=== PATIENT | female | born 1975 | race Caucasian/White ===

== ENCOUNTER 2019-08-03 09:43 | Day surgery (SDC) | payer OTHER, SELFPAY ==
[2019-08-03] VITALS (7 sets, daily range): BP systolic 103–143; BP diastolic 78–95; PULSE 72–80; RESP 16–18; TEMP 36.5–36.7; O2SAT 92–99; BMI 34.9
[2019-08-03 10:17] LABS: Internal QC Validated? YES +Cl - CLEAR BKGD; Pregnancy, Urine Negative Negative
[2019-08-03] MEDS: Lactated Ringers 1,000 ML 75 ML IV (10:31)
--- NOTE | 2019-08-03 11:20 | RAD_ITS ---
PROCEDURE: Caudal block injection DATE OF EXAMINATION: 08/03/2019 INDICATION: Female, 44 years old. Pain PHYSICIAN: Dr. Bernabe FLUOROSCOPY TIME (if supplied): (0:06) minutes/seconds RADIATION DOSAGE (If Supplied By Facility): ( 4.13 ) mGy A caudal block injection was performed under the direction of Dr. Bernabe and 2 fluoroscopic images were submitted for review. There is contrast material noted posterior to the sacrum in the spinal canal and these images were completed to Dr. Bernabe satisfaction. RAD/Fluor Guidance for Spine Inj IMPRESSION: A caudal block injection was performed under direction of Dr. Bernabe with fluoroscopic images obtained as described above. Electronically Signed: Vickey Solis, at 11:42 EDT Tel , Service support ,
[2019-08-03] MEDS: Bupivacaine 0.25% 30 ML Vial (11:31)
[2019-08-03] MEDS: MethylPREDNISolone Acetate 80 MG/ML Vial (11:31)
--- NOTE | 2019-08-03 12:40 | OP.PCM_ITS ---
Report of Operation Date of Procedure: 08/03/19 Description of Surgical Findings:: PREOPERATIVE DIAGNOSIS: Lumbosacral radiculopathy, lumbosacral degenerative disc disease, lumbosacral spinal stenosis POSTOPERATIVE DIAGNOSIS: Lumbar sacral radiculopathy, lumbosacral degenerative disc disease, lumbosacral spinal stenosis PROCEDURE PERFORMED: Caudal epidural steroid injection. ANESTHESIA: MAC. BLOOD LOSS: Minimal. COMPLICATIONS: None. DESCRIPTION OF PROCEDURE: History and physical of today was reviewed. Risks and benefits of the procedure were explained. The patient understood and agreed to proceed. Informed consent was obtained. IV inserted per routine protocol. The patient was taken to the operating room and placed in the prone position with a pillow positioned underneath the abdomen. The lower back and tailbone area was prepped and draped in a sterile fashion using iodine x3. Under f luoroscopy guidance on a lateral view, the caudal space was identified. The skin and subcutaneous tissue was anesthetized with approximately 3 mL of 1% lidocaine using a 25-gauge regular needle. Under direct visualization with fluoroscopy, using a 22-gauge 3-1/2-inch spinal needle, the needle was advanced via the skin through the sacral hiatus. The tip of the needle was passed through the sacrococcygeal ligament and advanced to approximately S4 area. After negative aspiration of blood or CSF, a total of 3 mL of contrast was injected to confirm correct placement of the needle as well as cephalad spread. The spread was followed to approximately L5 area. After confirmation on AP as well as lateral view and repeated negative aspiration, a total of 15 mL of preservative-free 0.125% Marcaine with 80 mg of Depo-Medrol was injected easily. The needle was then removed intact. The patient experienced no sign or symptoms of intrathecal or intravascular injection. The patient experienced no paresthesia. The procedure was completed without any apparent difficulty or any complications. The patient appeared to tolerate it well. ASSESSMENT AND PLAN: This is an 44-year-old female with lumbosacral radiculopathy, lumbosacral degenerative disc disease, lumbosacral spinal stenosis status post caudal epidural steroid injection patient will continue her current medications patient found approximately 2 weeks for reevaluation.
== END 2019-08-03 12:25 | disposition home or self-care (01) ==
LOC: SDC 09:51 → AC 10:20
PROVIDERS: Anesthesiology; Family Provider Family Medicine; PCP Family Medicine; Referring Provider Anesthesiology Pain Medicine; Visit Provider Anesthesiology Pain Medicine
PROC: 3E0S3BZ Introduction of Anesthetic Agent into Epidural Space, Percutaneous Approach (ICD-10-PCS; CPT 62282; principal; 2019-08-03 11:15)
DX: M51.17 Intervertebral disc disorders with radiculopathy, lumbosacral region (principal); M48.07 Spinal stenosis, lumbosacral region; M46.96 Unspecified inflammatory spondylopathy, lumbar region; M51.35 Other intervertebral disc degeneration, thoracolumbar region; M79.7 Fibromyalgia; K58.9 Irritable bowel syndrome, unspecified; G43.909 Migraine, unspecified, not intractable, without status migrainosus; G47.00 Insomnia, unspecified; F41.9 Anxiety disorder, unspecified; Z79.891 Long term (current) use of opiate analgesic; Z79.899 Other long term (current) drug therapy
CPT/HCPCS: 62323; 64483; 77003; 81025; J7120; J3490

== ENCOUNTER 2019-08-31 05:56 | Day surgery (SDC) | payer OTHER, SELFPAY ==
[2019-08-03 10:23] VITALS: BMI 34.9
[2019-08-31 06:14] VITALS: BP 128/89; PULSE 77; RESP 18; TEMP 36.3; O2SAT 100; BMI 35.8
[2019-08-31] MEDS: Lactated Ringers 1,000 ML 75 ML IV (06:32)
[2019-08-31 06:38] LABS: Internal QC Validated? YES +Cl - CLEAR BKGD; Pregnancy, Urine Negative Negative
--- NOTE | 2019-08-31 07:21 | SUR.OPER ---
radiofrequency ablatlion machine: [id number]
--- NOTE | 2019-08-31 07:30 | RAD_ITS ---
STUDY: LEFT L3-S1 RADIOFREQUENCY ABLATION. REASON FOR EXAM: Female, 44 years old. Chronic low back pain. FLUOROSCOPY TIME (if supplied): ( 41.7 seconds ) minutes/seconds TECHNIQUE: Intraoperative fluoroscopic services provided for left L3-S1 radiofrequency ablation. COMPARISON: None. FINDINGS: Intraoperative fluoroscopic services provided for left L3-S1 radiofrequency ablation. RAD/Lumbar Spine 2 or 3 Views IMPRESSION: Intraoperative fluoroscopic services provided for left L3-S1 radiofrequency ablation. Electronically Signed: Shawn Almodovar, at 14:30 EST , Service support ,
[2019-08-31] MEDS: MethylPREDNISolone Acetate 80 MG/ML Vial (07:40)
[2019-08-31] MEDS: Bupivacaine 0.25% 30 ML Vial (07:40)
[2019-08-31 08:00] VITALS: BP 121/92; BP 128/89; PULSE 84; RESP 18; TEMP 36.4; O2SAT 97
[2019-08-31 08:05] VITALS: BP 128/89; BP 130/99; PULSE 87; RESP 16; O2SAT 97
[2019-08-31 08:10] VITALS: BP 128/89; BP 132/93; PULSE 85; RESP 16; O2SAT 98
--- NOTE | 2019-08-31 08:13 | PCM.OPRPT ---
Report of Operation Date of Procedure: 08/31/19 Description of Surgical Findings:: PROCEDURE: Left-sided radiofrequency ablation of the medial branch L3, L4, L5, S1 PREOPERATIVE DIAGNOSES: Lumbosacral spondylosis, lumbosacral degenerative disc disease, lumbar facet arthropathy POSTOPERATIVE DIAGNOSES: Lumbosacral spondylosis, lumbosacral degenerative disc disease, lumbar facet arthropathy ANESTHESIA: MAC COMPLICATIONS: None BLOOD LOSS: Minimal PROCEDURE IN DETAIL: History and physical today was reviewed. Risks and benefits of procedure explained. The patient understood, agreed to the procedure and informed consent was obtained. IV inserted per routine protocol. The patient was taken to the operating room, placed in the prone position with a pillow positioned underneath the abdomen. The left side of the lower back was prepped and draped in a sterile fashion using iodine x 3. Under fluoroscopy guidance, on an oblique view, the L3 through S1 vertebral bodies were visualized. The skin and subcutaneous tissue was anesthetized with approximately 10 mL of 1% lidocaine using a 25-gauge regular needle. Under direct visualization with fluoroscopy at approximately 25-degree angle, starting on the left L3, ending on the left S1 passing through the L4-L5 using a 20-gauge 15 cm with a 10 mm curved active tip radiofrequency ablation needle the needle passed through the skin. The tip of the needle was maneuvered and directed towards the superior and medial gutter of the transverse process at the vicinity of the medial branch. Once the tip of the needle was in contact with the bone, the needle pulled approximately 2 mm up the bone. The stylet of each needle was then removed. After negative aspiration of blood with CSF and confirmation of AP as well as oblique view, radiofrequency ablation probe was then inserted at each level. Impedance was then recorded at L3 to be 208, at L4 258, at L5 282, at S1 235 ohm. Motor-evoked potential was then initiated to 1.5 volt without any motor response at each corresponding level. The probe was then removed intact and a total of 6 mL preservative-free 1% lidocaine was injected in divided doses between those 4 levels after negative aspiration of blood with CSF. The radiofrequency ablation probe was then reinserted after confirmation of AP, oblique as well as lateral view. Radiofrequency ablation was then initiated to 80 degrees Celsius for 90 seconds at each level. Once concluded, the probe was then removed intact and a total of 6 mL of preservative-free 0.25% Marcaine with 40 mg Depo-Medrol was injected in divided doses between those 4 levels. The needles were then removed intact. The patient experienced no signs or symptoms of intrathecal, intravascular injection. The patient experienced no paraesthesia. The procedure was completed without any apparent difficulty, any complication. The patient appeared to tolerate well. Sensory as well as motor exam was unchanged from prior to procedure. ASSESSMENT AND PLAN: This is a 44-year-old Female with lumbosacral spondylosis, lumbosacral degenerative disc disease, lumbar facet arthropathy, status post left-sided radiofrequency ablation of the medial branch L3 through S1. The patient will continue her current medications. The patient will follow up in approximately 2 weeks for reevaluation.
[2019-08-31 08:15] VITALS: BP 128/89; BP 130/93; PULSE 81; RESP 16; TEMP 36.8; O2SAT 100
[2019-08-31 08:37] VITALS: BP 128/89
== END 2019-08-31 08:45 | disposition home or self-care (01) ==
LOC: SDC 05:56 → AC 05:58
PROVIDERS: Anesthesiology; Family Provider Family Medicine; PCP Family Medicine; Referring Provider Anesthesiology Pain Medicine; Visit Provider Anesthesiology Pain Medicine
PROC: (CPT 64635; principal; 2019-08-31 07:15)
DX: M47.817 Spondylosis without myelopathy or radiculopathy, lumbosacral region (principal); M51.35 Other intervertebral disc degeneration, thoracolumbar region; M51.36 Other intervertebral disc degeneration, lumbar region; M51.37 Other intervertebral disc degeneration, lumbosacral region; M46.96 Unspecified inflammatory spondylopathy, lumbar region; M79.7 Fibromyalgia; K58.9 Irritable bowel syndrome, unspecified; L30.9 Dermatitis, unspecified; G43.909 Migraine, unspecified, not intractable, without status migrainosus; G47.00 Insomnia, unspecified; F41.9 Anxiety disorder, unspecified; Z79.891 Long term (current) use of opiate analgesic; Z79.899 Other long term (current) drug therapy
CPT/HCPCS: 01936; 64635; 64636 ×2; 72100; 76000; 81025; J7120

== ENCOUNTER 2019-09-28 06:52 | Day surgery (SDC) | payer OTHER, SELFPAY ==
[2019-09-28 07:11] VITALS: BP 112/93; PULSE 78; RESP 16; TEMP 36.3; O2SAT 94; BMI 35.9
[2019-09-28] MEDS: Lactated Ringers 1,000 ML 100 ML IV (07:17)
[2019-09-28 07:18] LABS: Internal QC Validated? YES +Cl - CLEAR BKGD; Pregnancy, Urine Negative Negative
--- NOTE | 2019-09-28 08:27 | RAD_ITS ---
STUDY: X-RAY - LUMBAR SPINE REASON FOR EXAM: Female, 44 years old. Right L3-S1 radiofrequency ablation. TECHNIQUE: 9 intraoperative fluoroscopic view(s) of the lumbar spine were obtained. COMPARISON: None FINDINGS: Intraoperative imaging provided for right L3-S1 radiofrequency ablation. RAD/L/S Spine Min 4 Views IMPRESSION: Intraoperative imaging provided for right L3-S1 radiofrequency ablation. Electronically Signed: Shawn Almodovar, at 11:19 EST , Service support ,
--- NOTE | 2019-09-28 08:31 | SUR.OPER ---
[id number] [facility], [facility] [place] [employer]
[2019-09-28] MEDS: Bupivacaine 0.25% 30 ML Vial (08:34)
[2019-09-28] MEDS: MethylPREDNISolone Acetate 80 MG/ML Vial (08:34)
[2019-09-28 08:55] VITALS: BP 106/81; BP 112/93; PULSE 83; RESP 16; TEMP 36.1; O2SAT 98
[2019-09-28 09:00] VITALS: BP 112/93; BP 116/85; PULSE 84; RESP 16; O2SAT 96
[2019-09-28 09:05] VITALS: BP 111/86; BP 112/93; PULSE 82; RESP 18; O2SAT 98
[2019-09-28 09:10] VITALS: BP 112/93; BP 119/83; PULSE 80; RESP 18; TEMP 36.4; O2SAT 94
[2019-09-28 09:25] VITALS: BP 112/93
--- NOTE | 2019-09-28 11:45 | PCM.OPRPT ---
Report of Operation Date of Procedure: 09/28/19 Description of Surgical Findings:: PROCEDURE: Right-sided radiofrequency ablation of the medial branch L3, L4, L5, S1 PREOPERATIVE DIAGNOSES: Lumbosacral spondylosis, lumbosacral degenerative disc disease, lumbar facet arthropathy POSTOPERATIVE DIAGNOSES: Lumbosacral spondylosis, lumbosacral degenerative disc disease, lumbar facet arthropathy ANESTHESIA: MAC COMPLICATIONS: None BLOOD LOSS: Minimal PROCEDURE IN DETAIL: History and physical today was reviewed. Risks and benefits of procedure explained. The patient understood, agreed to the procedure and informed consent was obtained. IV inserted per routine protocol. The patient was taken to the operating room, placed in the prone position with a pillow positioned underneath the abdomen. The right side of the lower back was prepped and draped in a sterile fashion using iodine x 3. Under fluoroscopy guidance, on an oblique view, the L3 through S1 vertebral bodies were visualized. The skin and subcutaneous tissue was anesthetized with approximately 10 mL of 1% lidocaine using a 25-gauge regular needle. Under direct visualization with fluoroscopy at approximately 25-degree angle, starting on the right L3, ending on the right S1 passing through the L4-L5 using a 20-gauge 15 cm with a 10 mm curved active tip radiofrequency ablation needle the needle passed through the skin. The tip of the needle was maneuvered and directed towards the superior and medial gutter of the transverse process at the vicinity of the medial branch. Once the tip of the needle was in contact with the bone, the needle pulled approximately 2 mm up the bone. The stylet of each needle was then removed. After negative aspiration of blood with CSF and confirmation of AP as well as oblique view, radiofrequency ablation probe was then inserted at each level. Impedance was then recorded at L3 to be 233, at L4 247, at L5 269, at S1 321 ohm. Motor-evoked potential was then initiated to 1.5 volt without any motor response at each corresponding level. The probe was then removed intact and a total of 6 mL preservative-free 1% lidocaine was injected in divided doses between those 4 levels after negative aspiration of blood with CSF. The radiofrequency ablation probe was then reinserted after confirmation of AP, oblique as well as lateral view. Radiofrequency ablation was then initiated to 80 degrees Celsius for 90 seconds at each level. Once concluded, the probe was then removed intact and a total of 6 mL of preservative-free 0.25% Marcaine with 40 mg Depo-Medrol was injected in divided doses between those 4 levels. The needles were then removed intact. The patient experienced no signs or symptoms of intrathecal, intravascular injection. The patient experienced no paraesthesia. The procedure was completed without any apparent difficulty, any complication. The patient appeared to tolerate well. Sensory as well as motor exam was unchanged from prior to procedure. ASSESSMENT AND PLAN: This is a 44-year-old Female with lumbosacral spondylosis, lumbosacral degenerative disc disease, lumbar facet arthropathy, status post right-sided radiofrequency ablation of the medial branch L3 through S1. The patient will continue her current medications. The patient will follow up in approximately 2 weeks for reevaluation.
== END 2019-09-28 09:28 | disposition home or self-care (01) ==
LOC: SDC 06:53 → AC 06:54
PROVIDERS: Anesthesiology; Family Provider Family Medicine; PCP Family Medicine; Referring Provider Anesthesiology Pain Medicine; Visit Provider Anesthesiology Pain Medicine
PROC: (CPT 64635; principal; 2019-09-28 08:05)
DX: M47.817 Spondylosis without myelopathy or radiculopathy, lumbosacral region (principal); M51.37 Other intervertebral disc degeneration, lumbosacral region; M51.34 Other intervertebral disc degeneration, thoracic region; K21.9 Gastro-esophageal reflux disease without esophagitis; K44.9 Diaphragmatic hernia without obstruction or gangrene; F41.9 Anxiety disorder, unspecified; G47.00 Insomnia, unspecified; E05.90 Thyrotoxicosis, unspecified without thyrotoxic crisis or storm; M79.7 Fibromyalgia; Z87.19 Personal history of other diseases of the digestive system; K76.0 Fatty (change of) liver, not elsewhere classified; E78.00 Pure hypercholesterolemia, unspecified; M12.9 Arthropathy, unspecified; Z79.891 Long term (current) use of opiate analgesic; Z79.899 Other long term (current) drug therapy
CPT/HCPCS: 64635; 64636 ×3; 72110; 76000; 81025; J7120